=== PATIENT | male | born 1965 | race Caucasian/White ===

== ENCOUNTER 2019-01-06 09:49 | Inpatient (IN) | payer MEDICAID ==
[~2019-01-06] VITALS: Ht 172.7 cm; Wt 84.9 kg
[2019-01-06] MEDS ORDERED: SODIUM CHLORIDE 0.9% 1,000 ML IVB ONE (10:16)
[2019-01-06 11:02] LABS: Basophils # (auto) 0.1 uL; Basophils % (auto) 0.7 % (0.0-2.0); Eosinophils # (auto) 0 uL; Eosinophils % (auto) 0.4 % (0.0-7.0); Hematocrit 47.4 % (41.0-53.0); Hemoglobin 16.1 g/dL (13.5-17.5); Lymphocytes # (auto) 1.7 uL; Lymphocytes % (auto) 21.7 % (10.0-50.0); Mean Corpuscular Hemoglobin 31.5 pg (28.0-32.0); Mean Corpuscular Volume 92.5 fL (80.0-100.0); Monocytes # (auto) 0.8 uL; Monocytes % (auto) 10.4 % (0.0-12.0); Neutrophils # (auto) 5.3 uL; Neutrophils % (auto) 66.8 % (37.0-80.0); Platelet Count (auto) 141 10^3/uL (140-450); Red Blood Cells 5.12 10^6/uL (4.5-5.90); Red Cell Distribution Width 12.8 % (11.8-14.3); White Blood Cell 7.9 10^3/uL (4.4-10.8)
[2019-01-06 11:09] LABS: Alanine Aminotransferase 30 U/L (16-61); Albumin 3.4 g/dL (3.4-5.0); Anion Gap 5 (5-15); Aspartate Aminotransferase 30 U/L (15-37); BUN/Creatinine Ratio 6.9; Blood Urea Nitrogen 7 mg/dL (7-18); Calcium 8.4 mg/dL (8.5-10.1); Carbon Dioxide 28 mmol/L (21-32); Chloride 110 mmol/L (98-107); GFR African American 99 mL/min; GFR Non-African American 82 mL/min; Glucose 101 mg/dL (74-106); Potassium 3.5 mmol/L (3.5-5.1); Sodium 143 mmol/L (136-145)
[2019-01-06 11:10] LABS: Urine WBC None Seen /hpf (0 - 3)
[2019-01-06 11:14] LABS: Alkaline Phosphatase 94 U/L (45-117); Bilirubin, Total 0.4 mg/dL (0.2-1.0); Total Protein 6.6 g/dL (6.4-8.2)
[2019-01-06 11:41] LABS: INR < 0.93 (0.9-1.15)
[2019-01-06 12:03] LABS: Urine Bacteria NONE SEEN /hpf (None Seen); Urine Blood Negative /uL (Negative); Urine Mucus FEW (None Seen); Urine Specific Gravity 1.009 (1.001-1.035)
[2019-01-06] MEDS ORDERED: KETOROLAC TROMETH 30 MG/ML 1ML VIAL IV ONE (12:30)
[2019-01-06] MEDS ORDERED: MORPHINE SULF INJ 2 MG/ML SYRINGE 1ML IV PRN ×2 (15:45)
[2019-01-06] MEDS ORDERED: ACETAMINOPHEN 500 MG TAB PO PRN (15:45)
[2019-01-06] MEDS ORDERED: ONDANSETRON HCL 4 MG/2 ML VIAL IV PRN (15:45)
[2019-01-06] MEDS ORDERED: HYDROcodone-ACET 5/325MG TAB PO PRN (15:45)
[2019-01-06] MEDS ORDERED: NITROGLYCERIN 0.4 MG SL TAB SL PRN (15:45)
[2019-01-06] MEDS ORDERED: LORazepam 2MG/ML-1ML VIAL IV PRN (16:00)
[2019-01-06] MEDS ORDERED: cefTRIAXone 1GM/50ML D5W 50 ML IV SCH (16:00)
[2019-01-06] MEDS: cefTRIAXone 1GM/50ML D5W 50 ML IV SCH (16:38)
[2019-01-06] MEDS: AZITHROMYCIN 500MG/ 250ML 250 ML IV SCH (17:27)
--- NOTE | 2019-01-06 18:52 | NUR ---
REPORT RECEIVED FROM ANDREW CROOK. PATIENT TO BE BROUGHT TO UNIT WHEN TELE BOX ARRIVES.
[2019-01-06] MEDS: IPRATROPIUM BROM 0.5 MG/2.5ML INH SOL NEB SCH (19:02)
[2019-01-06] MEDS: ALBUTEROL SULF 2.5 MG/0.5ML(0.5%) NEB SOLN NEB SCH (19:02)
--- NOTE | 2019-01-06 20:45 | NUR ---
Telemetry admit from ER LEWIS JERRY admitted to Telemetry unit after SBAR received. Patient oriented to Radha Hernandez, primary RN, unit, room, bed, and unit policies regarding patient care and visiting hours. Patient now on continuous telemetry monitoring, tele box # 31 and telemetry reading on arrival to unit is sinus rhythm. Patient weighed by bedscale and encouraged to call if they need something. All questions and concerns addressed, patient verbalized understanding.
[2019-01-06 20:49] VITALS: BP 131/74
[2019-01-06] MEDS: methylPREDNISolone SOD SUCC 125 MG/2 ML VL IV SCH (21:32)
[2019-01-06 23:03] VITALS: BP 131/74
[2019-01-06] MEDS ORDERED: OLAN20TA13 PO (23:18)
[2019-01-07 05:00] VITALS: BP 150/85
[2019-01-07] MEDS: ALBUTEROL SULF 2.5 MG/0.5ML(0.5%) NEB SOLN NEB SCH ×3 (06:27→19:32)
[2019-01-07] MEDS: IPRATROPIUM BROM 0.5 MG/2.5ML INH SOL NEB SCH ×3 (06:27→19:33)
--- NOTE | 2019-01-07 06:50 | NUR ---
Wound photo taken on R forehead and nose bridge.
--- NOTE | 2019-01-07 06:55 | NUR ---
Patient off unit to smoke.
--- NOTE | 2019-01-07 07:07 | NUR ---
Back to room.
--- NOTE | 2019-01-07 07:40 | NUR ---
Opening Shift Note Assumed care of patient, awake, alert and oriented x4. No S/S of distress/SOB or pain. Instructed on POC and to call for assist PRN. Bed at lowest locked position, bed side rails up x2 and call light within reach. Will continue to monitor for changes Q1hr and PRN.
[2019-01-07 08:00] VITALS: BP 127/81
--- NOTE | 2019-01-07 08:00 | NUR ---
Patient went down to smoke. Educated patient on risks of smoking. Patient verbalized understanding and states " I cant stop smiking, I have tried before". Addendum: 01/07/19 at 1851 by Emily Mena RN Patient went down to smoke.
[2019-01-07 09:00] VITALS: BP 127/81
[2019-01-07] MEDS: methylPREDNISolone SOD SUCC 125 MG/2 ML VL IV SCH (09:29)
[2019-01-07] MEDS: AZITHROMYCIN 500MG/ 250ML 250 ML IV SCH (09:29)
[2019-01-07] MEDS: cefTRIAXone 1GM/50ML D5W 50 ML IV SCH (09:30)
[2019-01-07] MEDS: FAMOTIDINE 20 MG TAB PO SCH (09:31)
[2019-01-07] MEDS: OLANZapine 5 MG TAB PO SCH (10:00)
--- NOTE | 2019-01-07 12:30 | NUR ---
PATIENT HAS AN AMA TO SMOKE. PATIENT GOING DOWN TO SMOKE.
[2019-01-07 13:00] VITALS: BP 130/88
--- NOTE | 2019-01-07 13:49 | NUR ---
SENT SPUTUM SPECIMEN TO LAB VIA BULLET.
--- NOTE | 2019-01-07 14:02 | NUR ---
Received referral to determine if pt who is a 53 yr old male who is alert and oriented times 3. Pt admits to being homeless and on parole. Pt was living in a placement until last Monday when he got into a verbal altercation with the vault manager. He was asked to leave. Pt states he called his police liaison officer and basically he had no where to go. Pt states he slept in an alley for two days. Pt,s police liaison officer, Mr Maurice [phone] did give him food vouchers and also bus passes. Pt ia very concerned about the programs that he is attending as part of his parole. Pt states his police liaison officer is aware of where he is and what is going on. Pt also has an ankle bracelet on. Pt states he smokes cigarettes and marijuana. Pt also admits to drinking beer and considers himself an alcoholic. He states he has gone to AA, NA and a couple of other programs. However, he states he is unable to stop. Pt was give socks and a sweat shirt. He stated the [facility] gave hime a blanket. Pt has a sister in [facility] but it is out of the area where he is too far to be out of the area. He states he is under the care of a psychiatrist for his medication for bipolar and schizophrenia. Pt states he has applied for SSI and has a hearing in February. child daycare worker stated called police liaison officer and he stated that he is looking for a placement for pt. Informed Mr. Maurice that pt could be discharged tomorrow. Addendum: 01/07/19 at 1604 by MEGGAN CARDOSO SS Pt's police liaison officer, Mr Maurice is actively looking for a placement for pt. child daycare worker is to call parole office to determine whether Mr. Maurice has found a facilitly for pt. child daycare worker will continue to work with pt to find a satisfactory placement.
[2019-01-07 17:00] VITALS: BP 114/72
--- NOTE | 2019-01-07 19:18 | NUR ---
Patient back in room. Care endorsed to NOC RN.
--- NOTE | 2019-01-07 19:30 | NUR ---
Opening Shift Note Assumed care of patient, awake, alert and oriented x4. No S/S of distress/SOB , and pt denies pain. Instructed on POC and to call for assist PRN. Bed at low locked position; bed side rails up x2 and call light within reach. Will continue to monitor for changes Q1hr and PRN.
--- NOTE | 2019-01-07 19:57 | NUR ---
Pt returning to room after gone outside to smoke. Pt wearing ankle bracelet for parole on L ankle.
--- NOTE | 2019-01-07 20:30 | NUR ---
This RN in to pt's room spoke with pt at length re. his health and life/health choices he has been and is making. Pt constantly wiggling L foot/lower leg from side to side as with nervousness. Pt open about having been incarcerated x2, losing parents, having made his sister angry and getting 'kicked out' of his living place and being homeless x3d. States he gets into arguments or fights easily and threatens to kill people. This RN warned pt that he could have charges pressed against him for this. Pt admitted prior knowledge of this and stated those threats are "terroristic threats", he understands. This RN informed pt that he is too young and too valuable to continue to make choices that create problems for himself as he does. Pt states that he needs a list of foods/types of food to eat and medicines to take and when and supplies to buy. This RN told him this can be done, but lists and numerous people standing between him and a wrong choice will not stop him if he does not decide to make better choices.
[2019-01-07 22:00] VITALS: BP 118/76
[2019-01-07] MEDS: methylPREDNISolone SOD SUCC 40 MG/ML VL IV SCH (22:35)
--- NOTE | 2019-01-07 22:42 | NUR ---
This RN in to pt's room to admin. routine med. Pt sleeping, easily awakened. RN asked pt if he had been outside to smoke. RN prev in to room finding pt gone from bed and not in bathroom. Pt admitted he had gone outside to smoke. RN explained to pt he must stop at [facility] to tell/ask if he can go outside, for his safety. Pt VU and agreed with plan.
[2019-01-08] VITALS (7 sets, daily range): BP systolic 118–129; BP diastolic 68–88
[2019-01-08 04:52] LABS: Basophils # (auto) 0 uL; Basophils % (auto) 0.2 % (0.0-2.0); Eosinophils # (auto) 0 uL; Hematocrit 46.2 % (41.0-53.0); Hemoglobin 15.9 g/dL (13.5-17.5); Lymphocytes # (auto) 0.7 uL; Lymphocytes % (auto) 5.4 % (10.0-50.0); Mean Corpuscular Hemoglobin 31.5 pg (28.0-32.0); Mean Corpuscular Hgb Conc. 34.5 g/dL (32.0-36.0); Mean Corpuscular Volume 91.3 fL (80.0-100.0); Monocytes # (auto) 0.4 uL; Monocytes % (auto) 3.2 % (0.0-12.0); Neutrophils # (auto) 12.3 uL; Neutrophils % (auto) 91.2 % (37.0-80.0); Nucleated Red Blood Cells % 0.1 %; Platelet Count (auto) 148 10^3/uL (140-450); Red Blood Cells 5.06 10^6/uL (4.5-5.90); Red Cell Distribution Width 12.8 % (11.8-14.3); White Blood Cell 13.5 10^3/uL (4.4-10.8)
[2019-01-08 05:05] LABS: Albumin 3.5 g/dL (3.4-5.0); BUN/Creatinine Ratio 16.7; Calcium 8.8 mg/dL (8.5-10.1); Potassium 4.2 mmol/L (3.5-5.1)
[2019-01-08 05:07] LABS: Bilirubin, Total 0.3 mg/dL (0.2-1.0); Total Protein 6.9 g/dL (6.4-8.2)
[2019-01-08] MEDS: ALBUTEROL SULF 2.5 MG/0.5ML(0.5%) NEB SOLN NEB SCH ×3 (06:35→19:26)
[2019-01-08] MEDS: IPRATROPIUM BROM 0.5 MG/2.5ML INH SOL NEB SCH ×3 (06:35→19:26)
--- NOTE | 2019-01-08 06:54 | NUR ---
Pt amb off unit to go outside to smoke.
--- NOTE | 2019-01-08 09:00 | NUR ---
Opening Shift Note Assumed care of patient, awake and alert. No S/S of distress/SOB or pain. Instructed on POC and to call for assistance PRN, will continue to monitor for changes.
[2019-01-08] MEDS: cefTRIAXone 1GM/50ML D5W 50 ML IV SCH (09:04)
[2019-01-08] MEDS: FAMOTIDINE 20 MG TAB PO SCH (09:05)
[2019-01-08] MEDS: OLANZapine 5 MG TAB PO SCH (09:05)
[2019-01-08] MEDS: methylPREDNISolone SOD SUCC 40 MG/ML VL IV SCH ×2 (09:05→21:49)
[2019-01-08] MEDS: AZITHROMYCIN 500MG/ 250ML 250 ML IV SCH (09:06)
--- NOTE | 2019-01-08 09:30 | NUR ---
patient taken down for procedure to laborer wharf. No s/s of SOB noted.
[2019-01-08] MEDS ORDERED: ADENOSINE 70 MG in GIVE UN-DILUTED 0 ML IV STA (09:55)
--- NOTE | 2019-01-08 11:26 | NUR ---
patient taken down for procedure to microbiological lab technician. No s/s of SOB noted.
--- NOTE | 2019-01-08 12:30 | NUR ---
SPOKE WITH PHYSICAL PLANT MANAGER GINNA AND UPDATED HIM ON PATIENTS PLAN OF CARE.
--- NOTE | 2019-01-08 12:57 | NUR ---
Pt went down for heart cath. Discharge will most likely be tomorrow.
--- NOTE | 2019-01-08 13:37 | NUR ---
IV removal of right AC IV DC'd with clean sterile technique, catheter fully intact. Pressure dressing applied to site. Patient tolerated well. IV Insertion to left forearm with 20 gauge with one attempt. patient tolerated well.
--- NOTE | 2019-01-08 13:49 | NUR ---
assessment Patient is a 53 year old male who is alert and oriented. Prior to admission patient was homeless. Patient informed me he is on parole and his banking services officer Mr Maurice is looking for placement for him. Patient has an ankle monitor. Patient uses Dr Jane for his PCP. Patient has no income. Patient has a SW through the parole office Mrs Lafleur. Patient informed me he has no need for DME. Tiffanie FORD1 will be working with patient for his homeless disposition. I informed patient he has a right to speak to a executive secretary social welfare regarding all care. I informed patient he has a right to participate in any and all discharge planning. Patient does not have a POA and advanced directive. I have offered patient information on POA and advanced directives. I informed the patient the advantages and benefits of having an Advanced Directive. Patient verbalized understanding and agreed to discharge plan. Addendum: 01/08/19 at 1356 by Siri ZARAGOZA Amended: Links added.
--- NOTE | 2019-01-08 14:28 | NUR ---
Conversed with pt this afternoon. Pt went to the slab polisher this morning and also had a stress test. Pt stated his sister in [place] is willing to take him home with her. However do the fact that pt is involved in several programs dictated by his parole it may be too far. field crop harvest worker tried calling Briseyda, his sister [phone] but the voice mail is full. Pt states his public safety officer indicated to him there may be a program in [place]. Pt admits to being thrown out of his many placements due to his inability to get along with the managers of the facility. Will call pt's public safety officer and advise him of his clients discharge tomorrow.
--- NOTE | 2019-01-08 15:18 | NUR ---
Spoke with Mr. Elliott the pt's commanding officer homicide squad [phone]. Will call in the morning for information.
--- NOTE | 2019-01-08 19:24 | NUR ---
CLOSING NOTE PATIENT IS COMFORTABLY RESTING IN BED ON ROOM AIR. NO S/S OF DISTRESS/SOB NOTED/STATED. BED AT LOWEST LOCKED POSITION AND CALL LIGHT WITHIN REACH. CARE ENDORSED TO NOC RN.
--- NOTE | 2019-01-08 19:53 | NUR ---
Pt returning from 7 minute trip outside 'to smoke.' This RN saw him leave without notifying anyone while nurses in report. After he returned to room this RN reminded him that he is to tell this RN when he wants to go downstairs. Pt, as during prev. night, agreed with plan and stated he would.
--- NOTE | 2019-01-08 23:01 | NUR ---
This pt returned from second smoke break; notified this RN before going out and stated it would be his last time for the night.
[2019-01-09 05:00] VITALS: BP 116/83
[2019-01-09] MEDS: ALBUTEROL SULF 2.5 MG/0.5ML(0.5%) NEB SOLN NEB SCH ×3 (06:05→19:34)
[2019-01-09] MEDS: IPRATROPIUM BROM 0.5 MG/2.5ML INH SOL NEB SCH ×3 (06:05→19:33)
[2019-01-09 06:11] LABS: Basophils # (auto) 0 uL; Eosinophils # (auto) 0 uL; Hematocrit 48.2 % (41.0-53.0); Hemoglobin 16.5 g/dL (13.5-17.5); Lymphocytes # (auto) 0.8 uL; Lymphocytes % (auto) 5.8 % (10.0-50.0); Mean Corpuscular Hgb Conc. 34.3 g/dL (32.0-36.0); Mean Corpuscular Volume 93.5 fL (80.0-100.0); Monocytes # (auto) 0.5 uL; Monocytes % (auto) 3.5 % (0.0-12.0); Neutrophils # (auto) 11.8 uL; Neutrophils % (auto) 90.7 % (37.0-80.0); Platelet Count (auto) 150 10^3/uL (140-450); Red Blood Cells 5.15 10^6/uL (4.5-5.90); Red Cell Distribution Width 13.1 % (11.8-14.3)
--- NOTE | 2019-01-09 06:28 | NUR ---
Pt stopped at [facility] to ask if he could go outside to smoke; ambulating off unit.
[2019-01-09 06:32] LABS: Potassium 4.9 mmol/L (3.5-5.1)
[2019-01-09 06:45] LABS: Albumin 3.4 g/dL (3.4-5.0); BUN/Creatinine Ratio 24.7; Bilirubin, Total 0.2 mg/dL (0.2-1.0); Calcium 8.7 mg/dL (8.5-10.1); Total Protein 6.7 g/dL (6.4-8.2)
--- NOTE | 2019-01-09 06:48 | NUR ---
Pt back in room talking on phone.
--- NOTE | 2019-01-09 07:45 | NUR ---
Opening patient awake in bed, bed in lowest position, patient is sitting up at side of bed, eating breakfast. Will f/u with morning assessment. Patient was supposed to do a cardiac cath, and/or stress test will f/u with this, noc nurse states no orders. This was also a possible discharge patient today, if the cardiac workup and pulmonary status improved according to noc nurse. Will continue to monitor this patient
[2019-01-09 09:00] VITALS: BP 111/84
[2019-01-09] MEDS: FAMOTIDINE 20 MG TAB PO SCH (09:19)
[2019-01-09] MEDS: methylPREDNISolone SOD SUCC 40 MG/ML VL IV SCH ×2 (09:19→22:44)
[2019-01-09] MEDS: OLANZapine 5 MG TAB PO SCH (09:19)
[2019-01-09] MEDS: AZITHROMYCIN 500MG/ 250ML 250 ML IV SCH (09:21)
[2019-01-09] MEDS: cefTRIAXone 1GM/50ML D5W 50 ML IV SCH (09:21)
--- NOTE | 2019-01-09 10:51 | NUR ---
nurse note patient states "i feel i want to harm myself, but I won't" reached out to charge nurse, placed a sitter in the room. paged the doctor, will continue to closely monitor
--- NOTE | 2019-01-09 11:30 | NUR ---
nurse note patient is going out of room, and states " i don't want no one following me "
--- NOTE | 2019-01-09 12:24 | NUR ---
nurse note reported the statement to MD maldonado, orders tele/psych consult, and says patient is not to go down to smoke and a sitter is to be placed.
--- NOTE | 2019-01-09 12:29 | NUR ---
sitter at bedside
[2019-01-09 13:09] VITALS: BP 126/84
--- NOTE | 2019-01-09 14:42 | NUR ---
Estimated needs based on CBW 82.6 kg-wt maintenance factors 1525-7176 kcal (23-25 kcal/kg) 66-83 g protein (0.8-1.0 g/kg) Addendum: 01/09/19 at [address] Amended: Links added.
--- NOTE | 2019-01-09 15:04 | NUR ---
placed consult for tele/psych consult however patient, state's he does not want to talk to anyone
--- NOTE | 2019-01-09 15:37 | NUR ---
NURSE NOTE PATIENT IS NOW SPEAKING WITH PSYCHIATRIST AT THIS TIME
--- NOTE | 2019-01-09 16:29 | NUR ---
re-assessment Patient informed me he is not suicidal. Patient informed me he is nervous about not having alf when discharged. Patient informed me he is not a threat to self or others. I informed patient we would be following up with his staff air tactical officer for placement and to inform him that patients sister Luma [phone] is willing to take patient in to her house on discharge. Patient has no plan and no thought of suicide. Addendum: 01/09/19 at 1633 by Siri ZARAGOZA Amended: Links added.
--- NOTE | 2019-01-09 16:56 | NUR ---
TELE/PSYCH CONSULT COMPLETED, AWAITING REPORT FROM THE MD AND/OR CALL BACK WITH RESULTS
[2019-01-09 17:49] VITALS: BP 126/84
--- NOTE | 2019-01-09 18:17 | NUR ---
nurse note calling to follow up on tele/psych consult, no report or md has called ([phone]) to call and get information DR LONDON is the consulting doctor she states she will fax the report to me now fax number to [place] [facility] has been given
--- NOTE | 2019-01-09 19:30 | NUR ---
Opening Shift Note Assumed care of patient. Patient is awake and alert. No S/S of distress/SOB or pain. Instructed on POC and to call for assist PRN, will continue to monitor for changes. Bed locked in lowest position and bed rails up x2. Call light within reach.
--- NOTE | 2019-01-09 19:35 | NUR ---
RT NOTE PT IS NOT IN ROOM FOR HHN TX AT THIS TIME. Addendum: 01/09/19 at 4 by Merary Arrieta RT Amended: Links added.
[2019-01-09 21:33] VITALS: BP 132/86
--- NOTE | 2019-01-10 04:53 | NUR ---
Patient refusing labs Addendum: 01/10/19 at 0454 by DAVID KEYES RN RN Refusing blood draw from mechanical laboratory technician. Educated patient on the risks and benefits.
[2019-01-10 05:34] VITALS: BP 136/84
[2019-01-10] MEDS: IPRATROPIUM BROM 0.5 MG/2.5ML INH SOL NEB SCH ×3 (06:01→19:00)
[2019-01-10] MEDS: ALBUTEROL SULF 2.5 MG/0.5ML(0.5%) NEB SOLN NEB SCH ×3 (06:01→19:00)
--- NOTE | 2019-01-10 07:45 | NUR ---
opening Patient in bed, awake, bed in lowest position, call light within reach. No distress noted at this time. Will f/u with morning assessment The report for tele/psych completed, patient does not qualify or meet criteria. Stress test results placed by dr Veliz nicotine patch is requested by charge nurse will talk with patient/md about this will continue to monitor this patient
[2019-01-10 09:00] VITALS: BP 150/92
[2019-01-10] MEDS: cefTRIAXone 1GM/50ML D5W 50 ML IV SCH (09:00)
[2019-01-10] MEDS: methylPREDNISolone SOD SUCC 40 MG/ML VL IV SCH ×2 (10:00→21:20)
[2019-01-10] MEDS: FAMOTIDINE 20 MG TAB PO SCH (10:00)
[2019-01-10] MEDS: OLANZapine 5 MG TAB PO SCH (10:00)
[2019-01-10] MEDS: AZITHROMYCIN 500MG/ 250ML 250 ML IV SCH (10:00)
[2019-01-10 11:58] LABS: Basophils # (auto) 0 uL; Basophils % (auto) 0.1 % (0.0-2.0); Eosinophils # (auto) 0 uL; Hematocrit 47.2 % (41.0-53.0); Hemoglobin 16.6 g/dL (13.5-17.5); Lymphocytes # (auto) 0.8 uL; Lymphocytes % (auto) 4.7 % (10.0-50.0); Mean Corpuscular Hemoglobin 32.4 pg (28.0-32.0); Mean Corpuscular Hgb Conc. 35.2 g/dL (32.0-36.0); Mean Corpuscular Volume 92.1 fL (80.0-100.0); Monocytes # (auto) 1.8 uL; Monocytes % (auto) 11.2 % (0.0-12.0); Neutrophils # (auto) 13.8 uL; Nucleated Red Blood Cells % 0.2 %; Platelet Count (auto) 151 10^3/uL (140-450); Red Blood Cells 5.12 10^6/uL (4.5-5.90); Red Cell Distribution Width 13.2 % (11.8-14.3); White Blood Cell 16.5 10^3/uL (4.4-10.8)
[2019-01-10 12:11] LABS: Potassium 4.3 mmol/L (3.5-5.1)
[2019-01-10 12:22] LABS: Albumin 3.5 g/dL (3.4-5.0); BUN/Creatinine Ratio 25.9; Bilirubin, Total 0.3 mg/dL (0.2-1.0); Calcium 8.2 mg/dL (8.5-10.1); Total Protein 6.9 g/dL (6.4-8.2)
[2019-01-10 13:00] VITALS: BP 138/88
[2019-01-10 17:00] VITALS: BP 137/89
[2019-01-10 21:15] VITALS: BP 122/74
[2019-01-11 04:21] VITALS: BP 112/73
[2019-01-11] MEDS: ALBUTEROL SULF 2.5 MG/0.5ML(0.5%) NEB SOLN NEB SCH ×3 (07:27→18:38)
[2019-01-11] MEDS: IPRATROPIUM BROM 0.5 MG/2.5ML INH SOL NEB SCH ×3 (07:27→18:38)
--- NOTE | 2019-01-11 07:30 | NUR ---
Opening Shift Note Assumed care of patient, awake and alert. No S/S of distress/SOB or pain. Instructed on POC and to call for assist PRN, will continue to monitor for changes Q1hr and PRN.
--- NOTE | 2019-01-11 07:48 | NUR ---
Patient walked outside to smoke; instructed patient to tell me when he comes back up to the floor/room.
[2019-01-11 09:00] VITALS: BP 134/91
[2019-01-11] MEDS: cefTRIAXone 1GM/50ML D5W 50 ML IV SCH (09:00)
--- NOTE | 2019-01-11 10:00 | NUR ---
Patient NPO for procedure this afternoon.
[2019-01-11] MEDS: OLANZapine 5 MG TAB PO SCH (10:31)
[2019-01-11] MEDS: methylPREDNISolone SOD SUCC 40 MG/ML VL IV SCH ×2 (10:31→21:42)
[2019-01-11] MEDS: AZITHROMYCIN 500MG/ 250ML 250 ML IV SCH (10:32)
[2019-01-11] MEDS: FAMOTIDINE 20 MG TAB PO SCH (10:32)
--- NOTE | 2019-01-11 11:30 | NUR ---
IV removal IV DC'd with clean sterile technique, catheter fully intact. Pressure dressing applied to site. Patient tolerated well.
--- NOTE | 2019-01-11 11:32 | NUR ---
IV insertion IV access obtained, via clean sterile technique by inserting 20 gauge catheter at right wrist after 1 attempt. IV secured properly. No trauma to site. Patient tolerated well.
--- NOTE | 2019-01-11 11:53 | NUR ---
Patient taken down to Die Cut Operator via hospital bed; no distress noted at time of departure.
--- NOTE | 2019-01-11 11:54 | NUR ---
New orders received from Dr. Deepa MD. Addendum: 01/11/19 at 1156 by JANELLE NI RN RN Time on note above should read [id number]
--- NOTE | 2019-01-11 12:07 | NUR ---
Respiratory note: Scheduled medneb tx not given at this time, pt at procedure in cardiac cath lab radiology technologist. Will endorse pt care to noc shift RT.
[2019-01-11] MEDS ORDERED: IODIXANOL 320MG/ML 100ML BTL IV ONE (12:35)
[2019-01-11] MEDS ORDERED: LIDOCAINE 2%HCL (LOCAL ANESTH.) INJ 20ML MDV ONE (12:36)
[2019-01-11] MEDS ORDERED: fentaNYL CITRATE 100 MCG/2 ML VL ONE (12:40)
[2019-01-11] MEDS ORDERED: SODIUM CHL 0.9% 0 ML ONE (12:40)
[2019-01-11] MEDS ORDERED: VERAPAMIL 2.5MG/ML INJ 2ML VIAL IV ONE (12:40)
[2019-01-11] MEDS ORDERED: MIDAZOLAM HCL 1MG/1ML-2 ML VIAL ONE (12:40)
[2019-01-11] MEDS ORDERED: ANGIOMAX 250 MG VIAL IV ONE (12:40)
[2019-01-11 13:00] VITALS: BP 126/75
[2019-01-11] MEDS ORDERED: HEPARIN SODIUM (PORCINE) 5000 UNITS/ML 1ML VIAL ONE (13:04)
--- NOTE | 2019-01-11 14:00 | NUR ---
Patient returned from laborer wood preserving plant via hospital bed; no distress noted at time of arrival. Left Radial vascular band in place, clean, dry, and intact; will remove 2 mL of air starting at 1415, in 15 minute increments.
--- NOTE | 2019-01-11 14:15 | NUR ---
Removed 2 mL of air from right radial vascular band; no bleeding noted. Addendum: 01/12/19 at 1004 by JANELLE NI RN RN note should read Left radial vascular band.
--- NOTE | 2019-01-11 15:30 | NUR ---
Left radial vascular band removed; no bleeding noted at this time, site is clean, dry, and gauze pressure dressing applied. Educated patient about risks of bleeding from site, and to let me or the primary RN know immediately if blood is present on dressing. Will continue to monitor patient Q1.
[2019-01-11 17:00] VITALS: BP 137/87
--- NOTE | 2019-01-11 20:00 | NUR ---
Opening Shift Note Assumed care of patient, awake and alert. No S/S of distress/SOB or pain. Dressing to left wrist clean, dry and intact. Instructed on POC and to call for assist PRN, will continue to monitor for changes Q1hr and PRN. Bed in low position with brakes locked; call light in reach.
[2019-01-11 21:00] VITALS: BP 124/87
[2019-01-12 04:57] VITALS: BP 131/85
[2019-01-12] MEDS: ALBUTEROL SULF 2.5 MG/0.5ML(0.5%) NEB SOLN NEB SCH ×2 (06:09→11:37)
[2019-01-12] MEDS: IPRATROPIUM BROM 0.5 MG/2.5ML INH SOL NEB SCH ×2 (06:09→11:37)
--- NOTE | 2019-01-12 07:00 | NUR ---
Patient up ambulating outside to smoke cigarette; no acute distress noted. Report given to day shift RN.
[2019-01-12] MEDS: AZITHROMYCIN 500MG/ 250ML 250 ML IV SCH (10:00)
[2019-01-12] MEDS: methylPREDNISolone SOD SUCC 40 MG/ML VL IV SCH (10:43)
[2019-01-12] MEDS: OLANZapine 5 MG TAB PO SCH (10:43)
[2019-01-12] MEDS: cefTRIAXone 1GM/50ML D5W 50 ML IV SCH (10:43)
[2019-01-12] MEDS: FAMOTIDINE 20 MG TAB PO SCH (10:43)
--- NOTE | 2019-01-12 12:00 | NUR ---
Dr. Deepa MD, at bedside; new orders received.
--- NOTE | 2019-01-12 15:41 | NUR ---
Discharge instructions given as ordered. Encourage to follow up with PMD as instructed. All questions and concerns addressed. Patient verbalized understanding. Medication reconciliation form completed and copy given to patient. Home medications held in Pharmacy returned to patient. IV removed with catheter intact, pressure dressing applied. Telemetry unit returned to ICU. Patient walked downstairs to lobby to wait for his sister to pick him up. No distress noted at time of departure.
== END 2019-01-12 16:30 | disposition home or self-care (01) | DRG 191 ==
LOC: ER 09:49 → TELE 09:50 → TELE-CENTR 20:22
PROVIDERS: ADMIT Nurse Practitioner Acute Care; ATTEND Internal Medicine
PROC: 4A023N7 Measurement of Cardiac Sampling and Pressure, Left Heart, Percutaneous Approach (ICD-10-PCS; principal; 2019-01-11)
PROC: B2101ZZ Fluoroscopy of Single Coronary Artery using Low Osmolar Contrast (ICD-10-PCS; 2019-01-11)
PROC: B2151ZZ Fluoroscopy of Left Heart using Low Osmolar Contrast (ICD-10-PCS; 2019-01-11)
DX: I25.110 Atherosclerotic heart disease of native coronary artery with unstable angina pectoris (principal); J44.1 Chronic obstructive pulmonary disease with (acute) exacerbation; R45.851 Suicidal ideations; F41.9 Anxiety disorder, unspecified; F81.9 Developmental disorder of scholastic skills, unspecified; I73.9 Peripheral vascular disease, unspecified; F17.210 Nicotine dependence, cigarettes, uncomplicated; I10 Essential (primary) hypertension; F32.9 Major depressive disorder, single episode, unspecified; N02.8 Recurrent and persistent hematuria with other morphologic changes; Z59.0 Homelessness; Z71.6 Tobacco abuse counseling; Z79.899 Other long term (current) drug therapy; Z91.19 Patient's noncompliance with other medical treatment and regimen
CPT/HCPCS: 36415; 71045; 78452; 80053; 81001; 83735; 83880; 84484; 85025; 85610; 85730; 87070; 87081; 87205; 87804; 93017; 93458; 93926; 94640; 96365; 96367; 96375; G0378; J0153; J0696; J1885; J2250; J2405; Q9967

== ENCOUNTER 2024-08-30 17:43 | Emergency (ER) | payer MEDICAID ==
[~2024-08-30] VITALS: Ht 175.3 cm; Wt 72.7 kg
[~2024-08-30 17:43] MED LIST: OLAN20TA PO
[2024-08-30 18:32] VITALS: TEMP 98.7
[2024-08-30 18:34] VITALS: PULSE 102; RESP 21; O2SAT 96
--- NOTE | 2024-08-30 18:42 | DVH ---
EXAM: CT HEAD WITHOUT CONTRAST HISTORY: ALOC / ataxia COMPARISON: None TECHNIQUE: Axial images were obtained and reformatted in coronal and sagittal planes. All CT scans at this medical facility are performed using dose modulation techniques as appropriate t o a performed exam including the following: Automated exposure control was utilized; adjustment of th e MA and/or KV according to patient size; and use of iterative reconstruction technique. CT Dose: CTDI volume is 55.82 mGy. Dose-length product is 990.13 mGy*cm FINDINGS: Supratentorial Region: No evidence for large acute territorial ischemia. No intracranial hemorrhage is noted. Posterior Fossa: No acute abnormality. Brainstem: Unremarkable. Sellar/Suprasellar Region: Unremarkable. Ventricles, Cisterns, Sulci: Age-appropriate. Orbits: Unremarkable. Paranasal Sinuses: Unremarkable. Mastoid Air Cells: Unremarkable. Vasculature: Unremarkable. Bones/Soft Tissues: No acute abnormality. Other: None. IMPRESSION: 1. No acute intracranial process.
--- NOTE | 2024-08-30 18:49 | ED.PDOC ---
Psychiatric HPI Comments 58-year-old male who came to ER via EMS for mental health issues. Per EMS, patient has history of anxiety, depression and schizophrenia. Does have history of substance abuse. Patient resides at the [facility], and has been heard to be talking about overdosing on fentanyl in an attempt to harm himself. Caregivers decided to bring him to a behavioral health center, however once the patient denies being suicidal or homicidal. Paramedics were called because patient was noted to be imbalanced and complaining of dizziness. Upon arrival paramedics, patient denies everything. Chief Complaint: Mental Health Time Seen by MD: 18:48 Reviewed Notes: Nurses Notes Information Source: Patient Mode of Arrival: EMS Severity: Unable to Care for Self, Unable to Control Self Severity of Pain: Moderate Severity of Mental Status: Moderate Severity of Symptoms: Moderate Timing: Hours Duration: Since onset Presents with: Depression, Anxiety, Unclear Thinking Circumstance: Medical Clearance, Causing a Disturbance History of: Substance Abuse Associated signs and symptoms: Depression, Hopeless, Anxiety Past Medical History PAST MEDICAL HISTORY: Anxiety, Asthma, Depression, Schizophrenia Surgical History: Denies all surgeries Family History Family History: Reviewed,noncontributory to illness Social History Smoker: Cigarettes Alcohol: Occasionally Drugs: Marijuana Lives In: Other ([facility] [place]) Constitutional: denies: chills, diaphoresis, fatigue, fever, malaise, sweats, weakness, others EENTM: denies: blurred vision, double vision, ear bleeding, ear discharge, ear drainage, ear pain, ear ringing, eye pain, eye redness, hearing loss, mouth pain, mouth swelling, nasal discharge, nose bleeding, nose congestion, nose pain, photophobia, tearing, throat pain, throat swelling, voice changes, others Respiratory: denies: cough, hemoptysis, orthopnea, SOB at rest, shortness of breath, SOB with excertion, stridor, wheezing, others Cardiovascular: denies: chest pain, dizzy spells, diaphoresis, Dyspnea on exertion, edema, irregular heart beat, left arm pain, lightheadedness, palpitations, PND, syncope, others Gastrointestinal: denies: abdomen distended, abdominal pain, blood streaked bowels, constipated, diarrhea, dysphagia, difficulty swallowing, hematemesis, melena, nausea, poor appetite, poor fluid intake, rectal bleeding, rectal pain, vomiting, others Genitourinary: denies: burning, dysuria, flank pain, frequency, hematuria, incontinence, penile discharge, penile sore, pain, testicle pain, testicle swelling, urgency, others Neurological: denies: dizziness, fainting, headache, left sided numbness, left sided weakness, numbness, paresthesia, pre-existing deficit, right sided numbness, right sided weakness, seizure, speech problems, tingling, tremors, weakness, others Musculoskeletal: denies: back pain, gout, joint pain, joint swelling, muscle pain, muscle stiffness, neck pain, others Integumetry: denies: bruises, change in color, change in hair/nails, dryness, laceration, lesions, lumps, rash, wounds, others Allergic/Immunocompromised: denies: Difficulty Healing, Frequent Infections, Hives, Itching, others Hematologic/Lymphatic: denies: anemia, blood clots, easy bleeding, easy bruising, swollen glands, others Endocrine: denies: excessive hunger, excessive sweating, excessive thirst, excessive urination, flushing, intolerance to cold, intolerance to heat, unexplained weight gain, unexplained weight loss, others Psychiatric: reports: anxiety, schizophrenia; denies: bipolar disorder, depression, hopeless, panic disorder, sleepless, suicidal, others Physical Exam General Appearance: No Apparent Distress, Normal HEENT: Normal ENT Inspection, Pharynx Normal, TMs Normal Neck: Full Range of Motion, Non-Tender, Normal, Normal Inspection Respiratory: Chest Non-Tender, Lungs Clear, No Accessory Muscle Use, No Respi ratory Distress, Normal Breath Sounds Cardiovascular: No Edema, No JVD, No Murmur, No Gallop, Normal Peripheral Pulses, Regular Rate/Rhythm Breast Exam: Deferred Gastrointestinal: No Organomegaly, Non Tender, No Pulsatile Mass, Normal Bowel Sounds, Soft Genitalia: Deferred Pelvic: Deferred Rectal: Deferred Extremities: No calf tenderness, Normal capillary refill, Normal inspection, Normal range of motion, Non-tender, No pedal edema Musculoskeletal : Apperance: Normal Neurologic: Alert, automatic winder operator II-XII nml as Tested, No Motor Deficits, Normal Affect, Normal Mood, No Sensory Deficits Cerebellar Function: Normal Reflexes: Normal Skin: Dry, Normal Color, Warm Lymphatic: No Adenopathy Was a procedure done? Was a procedure done?: No Psych Differential Dx Psych. Differential Dx: Anxiety, Bipolar Disorder, Depression, Hopeless, Schizoprenia, Suicidal X-Ray, Labs, Meds, VS Vital Signs Date Time Temp Pulse Resp B/P (MAP) Pulse Ox O2 Delivery O2 Flow Rate FiO2 08/30/24 20:01 147/53 08/30/24 20:00 97 17 147/83 (104) 98 08/30/24 19:04 166/104 08/30/24 19:03 166/104 08/30/24 18:34 102 21 96 Room Air* 0 21 08/30/24 18:32 98.7 103 21 168/108 (128) 95 98.7 08/30/24 18:03 97.6 86 18 146/97 (113) 98 97.6 Lab Test 08/30/24 18:29 Range/Units POC Glucose 84 70-106 mg/dl Current Medications Medications (Trade) Dose Ordered Sig/Cayla Route Start Time Stop Time Status Last Admin Clonidine HCl (Catapres Tablet) 0.2 mg ONCE ONCE PO 08/30/24 19:00 08/30/24 19:01 DC 08/30/24 19:04 EXAM: CT HEAD WITHOUT CONTRAST HISTORY: ALOC / ataxia COMPARISON: None TECHNIQUE: Axial images were obtained and reformatted in coronal and sagittal planes. All CT scans at this medical facility are performed using dose modulation techniques as appropriate to a performed exam including the following: Automated exposure control was utilized; adjustment of the MA and/or KV according to patient size; and use of iterative reconstruction technique. CT Dose: CTDI volume is 55.82 mGy. Dose-length product is 990.13 mGy*cm FINDINGS: Supratentorial Region: No evidence for large acute territorial ischemia. No intracranial hemorrhage is noted. Posterior Fossa: No acute abnormality. Brainstem: Unremarkable. Sellar/Suprasellar Region: Unremarkable. Ventricles, Cisterns, Sulci: Age-appropriate. Orbits: Unremarkable. Paranasal Sinuses: Unremarkable. Mastoid Air Cells: Unremarkable. Vasculature: Unremarkable. Bones/Soft Tissues: No acute abnormality. Other: None. IMPRESSION: 1. No acute intracranial process. Time of 1ST Reevaluation: 18:40 Reevaluation 1ST: Unchanged Patient Education/Counseling: Diagnosis, Treatment Family Education/Counseling: No Family Present Departure 1 Departure Time of Disposition: 20:30 Impression: Primary Impression: Schizophrenia Disposition: HOME / SELF CARE / HOMELESS Condition: Stable Discharged With: Self Critical Care Note Critical Care Time?: No Stability Stability form required: No Heart Score Heart Score: Heart Score Response (Comments) Value History N/A 0 EKG N/A 0 Age N/A 0 Risk Factors N/A 0 Troponin N/A 0 Total 0 I personally scribed for RITA BEAR MD ([email or web address]) on 08/30/24 at 18:49. Electronically submitted by Palmer Hernandez ([facility] [employer] [facility]). I personally scribed for RITA BEAR MD ([email or web address]) on 08/30/24 at 18:58. Electronically submitted by Palmer Hernandez ([employer]). RITA BEAR MD August 30, 2024 18:49
[2024-08-30] MEDS: cloNIDine HCL 0.1 MG TAB PO ONE ×2 (19:03→19:04)
[2024-08-30 20:00] VITALS: BP 147/83; PULSE 97; RESP 17; O2SAT 98
== END 2024-08-30 20:33 | disposition home or self-care (01) ==
LOC: ER 17:43 → EDBD 17:43 → ER 20:33
DX: T40.411A Poisoning by fentanyl or fentanyl analogs, accidental (unintentional), initial encounter (principal); F17.210 Nicotine dependence, cigarettes, uncomplicated; F20.9 Schizophrenia, unspecified; F32.A Depression, unspecified; F41.9 Anxiety disorder, unspecified; J45.909 Unspecified asthma, uncomplicated; R51.9 Headache, unspecified; Z79.899 Other long term (current) drug therapy; Y92.89 Other specified places as the place of occurrence of the external cause
CPT/HCPCS: 70450; 82947; 82962

== ENCOUNTER 2024-08-30 23:12 | Emergency (ER) | payer MEDICAID ==
[~2024-08-30] VITALS: Ht 182.9 cm; Wt 84.0 kg
[2024-08-30 23:51] LABS: Basophils # (auto) 0 10 ^3/uL (0-0.2); Basophils % (auto) 0.2 % (0.0-2.0); Eosinophils # (auto) 0 10 ^3/uL (0-0.8); Eosinophils % (auto) 0.3 % (0.0-7.0); Hematocrit 44.9 % (41.0-53.0); Hemoglobin 15.1 g/dL (13.5-17.5); Lymphocytes # (auto) 1.3 10 ^3/uL (0.4-5.4); Lymphocytes % (auto) 16.7 % (10.0-50.0); Mean Corpuscular Hemoglobin 31.9 pg (28.0-32.0); Mean Corpuscular Hgb Conc. 33.7 g/dL (32.0-36.0); Mean Corpuscular Volume 94.6 fL (80.0-100.0); Monocytes # (auto) 0.7 10 ^3/uL (0-1.3); Monocytes % (auto) 9.8 % (0.0-12.0); Neutrophils # (auto) 5.5 10 ^3/uL (1.6-8.6); Platelet Count (auto) 170 10^3/uL (140-450); Red Blood Cells 4.75 10^6/uL (4.5-5.90); Red Cell Distribution Width 14.1 % (11.8-14.3); White Blood Cell 7.5 10^3/uL (4.4-10.8)
--- NOTE | 2024-08-30 23:52 | ED.PDOC ---
Psychiatric HPI Comments 58-year-old male who came to ER via EMS for mental health issues. Per EMS, patient has history of anxiety, depression and schizophrenia. Does have history of substance abuse. Was seen here earlier for suicidal ideations but patient signed AMA. Patient went back his senior living house where he took some sleeping pills, approximately 10 tablets, in an attempt to harm himself. Patient denies any pain subjective complaints at this time of care Chief Complaint: Overdose Time Seen by MD: 23:49 Reviewed Notes: Nurses Notes Information Source: Patient Mode of Arrival: EMS Severity: Unable to Care for Self, Unable to Control Self Severity of Pain: Moderate Severity of Mental Status: Moderate Severity of Symptoms: Moderate Timing: Hours Duration: Since onset Presents with: Depression, Anxiety, Unclear Thinking, Bizarre Behavior, Suicidal Ideation Attempt: Ingestion Ingestion: Intentional, Multiple, Ingestion Observed, Drug(s) Ingested (Sleeping pills), Amount Ingested (10 tablets) Circumstance: Medical Clearance, Causing a Disturbance Stressors: Relationships History of: Depression, Anxiety, Schizophrenia, Suicidal Attempt, Substance Abuse Associated signs and symptoms: Depression, Hopeless, Anxiety, Anger Past Medical History PAST MEDICAL HISTORY: Anxiety, Asthma, Depression, Schizophrenia Surgical History: Denies all surgeries Family History Family History: Reviewed,noncontributory to illness Social History Smoker: Cigarettes Alcohol: Occasionally Drugs: Marijuana Lives In: Other ([place] [facility]) Constitutional: denies: chills, diaphoresis, fatigue, fever, malaise, sweats, weakness, others EENTM: denies: blurred vision, double vision, ear bleeding, ear discharge, ear drainage, ear pain, ear ringing, eye pain, eye redness, hearing loss, mouth pain, mouth swelling, nasal discharge, nose bleeding, nose congestion, nose pain, photophobia, tearing, throat pain, throat swelling, voice changes, others Respiratory: denies: cough, hemoptysis, orthopnea, SOB at rest, shortness of breath, SOB with excertion, stridor, wheezing, others Cardiovascular: denies: chest pain, dizzy spells, diaphoresis, Dyspnea on exertion, edema, irregular heart beat, left arm pain, lightheadedness, palp itations, PND, syncope, others Gastrointestinal: denies: abdomen distended, abdominal pain, blood streaked bowels, constipated, diarrhea, dysphagia, difficulty swallowing, hematemesis, melena, nausea, poor appetite, poor fluid intake, rectal bleeding, rectal pain, vomiting, others Genitourinary: denies: burning, dysuria, flank pain, frequency, hematuria, incontinence, penile discharge, penile sore, pain, testicle pain, testicle swelling, urgency, others Neurological: denies: dizziness, fainting, headache, left sided numbness, left sided weakness, numbness, paresthesia, pre-existing deficit, right sided numbness, right sided weakness, seizure, speech problems, tingling, tremors, weakness, others Musculoskeletal: denies: back pain, gout, joint pain, joint swelling, muscle pain, muscle stiffness, neck pain, others Integumetry: denies: bruises, change in color, change in hair/nails, dryness, laceration, lesions, lumps, rash, wounds, others Allergic/Immunocompromised: denies: Difficulty Healing, Frequent Infections, Hives, Itching, others Hematologic/Lymphatic: denies: anemia, blood clots, easy bleeding, easy brui sing, swollen glands, others Endocrine: denies: excessive hunger, excessive sweating, excessive thirst, ex cessive urination, flushing, intolerance to cold, intolerance to heat, unexplained weight gain, unexplained weight loss, others Psychiatric: denies: anxiety, bipolar disorder, depression, hopeless, panic disorder, schizophrenia, sleepless, suicidal, others Physical Exam General Appearance: No Apparent Distress, Normal HEENT: Normal ENT Inspection, Pharynx Normal, TMs Normal Neck: Full Range of Motion, Non-Tender, Normal, Normal Inspection Respiratory: Chest Non-Tender, Lungs Clear, No Accessory Muscle Use, No Res piratory Distress, Normal Breath Sounds Cardiovascular: No Edema, No JVD, No Murmur, No Gallop, Normal Peripheral Pulses, Regular Rate/Rhythm Breast Exam: Deferred Gastrointestinal: No Organomegaly, Non Tender, No Pulsatile Mass, Normal Bowel Sounds, Soft Genitalia: Deferred Pelvic: Deferred Rectal: Deferred Extremities: No calf tenderness, Normal capillary refill, Normal inspection, Normal range of motion, Non-tender, No pedal edema Musculoskeletal : Apperance: Normal Neurologic: Alert, legal project manager II-XII nml as Tested, No Motor Deficits, Normal Affect, Normal Mood, No Sensory Deficits Cerebellar Function: Normal Reflexes: Normal Skin: Dry, Normal Color, Warm Lymphatic: No Adenopathy Was a procedure done? Was a procedure done?: No Psych Differential Dx OD Differential Dx: Anxiety, Depression, Drug Overdose, Intentional, Schizophrenia, Substance Abuse, Suicidal Attempt, Suicidal Gesture X-Ray, Labs, Meds, VS Vital Signs Date Time Temp Pulse Resp B/P (MAP) Pulse Ox O2 Delivery O2 Flow Rate FiO2 08/30/24 23:19 88 08/30/24 23:12 98.1 80 16 150/100 (117) 95 98.1 Lab Test 08/30/24 23:54 08/30/24 23:40 Range/Units Urine Opiates Screen Neg NEGATIVE Urine Fentanyl Screen Neg NEGATIVE Urine Barbiturates Screen Neg NEGATIVE Urine Phencyclidine Screen Neg NEGATIVE Urine Amphetamines Screen Neg NEGATIVE Urine Benzodiazepines Screen Neg NEGATIVE Urine Cocaine Screen Neg NEGATIVE Urine Cannabinoids Screen Neg NEGATIVE White Blood Count 7.5 4.4-10.8 10^3/uL Red Blood Count 4.75 4.5-5.90 10^6/uL Hemoglobin 15.1 13.5-17.5 g/dL Hematocrit 44.9 41.0-53.0 % Mean Corpuscular Volume 94.6 80.0-100.0 fL Mean Corpuscular Hemoglobin 31.9 28.0-32.0 pg Mean Corpuscular Hemoglobin Concent 33.7 32.0-36.0 g/dL Red Cell Distribution Width 14.1 11.8-14.3 % Platelet Count 170 140-450 10^3/uL Mean Platelet Volume 8.3 6.9-10.8 fL Neutrophils (%) (Auto) 73.0 37.0-80.0 % Lymphocytes (%) (Auto) 16.7 10.0-50.0 % Monocytes (%) (Auto) 9.8 0.0-12.0 % Eosinophils (%) (Auto) 0.3 0.0-7.0 % Basophils (%) (Auto) 0.2 0.0-2.0 % Neutrophils # (Auto) 5.5 1.6-8.6 10 ^3/uL Lymphocytes # (Auto) 1.3 0.4-5.4 10 ^3/uL Monocytes # (Auto) 0.7 0-1.3 10 ^3/uL Eosinophils # (Auto) 0 0-0.8 10 ^3/uL Basophils # (Auto) 0 0-0.2 10 ^3/uL Nucleated Red Blood Cells 0.0 % Sodium Level 141 136-145 mmol/L Potassium Level 3.9 3.5-5.1 mmol/L Chloride Level 106 98-107 mmol/L Carbon Dioxide Level 27 20-31 mmol/L Anion Gap 8 5-15 Blood Urea Nitrogen 17 9-23 mg/dL Creatinine 1.15 0.700-1.30 mg/dL Glomerular Filtration Rate Calc 73 >90 mL/min BUN/Creatinine Ratio 14.8 10.0-20.0 Serum Glucose 117 H 74-106 mg/dL Calcium Level 9.7 8.7-10.4 mg/dL Magnesium Level 2.2 1.6-2.6 mg/dL Total Bilirubin 0.5 0.2-1.0 mg/dL Aspartate Amino Transferase (AST) 15 13-40 U/L Alanine Aminotransferase (ALT) 21 7-40 U/L Alkaline Phosphatase 77 46-116 U/L Total Protein 6.7 5.7-8.2 g/dL Albumin 4.4 3.2-4.8 g/dL Salicylates Level < 3.0 -30 mg/dL Acetaminophen Level < 2.0 L 10.0-20.0 UG/ML Plasma/Serum Blood Alcohol < 3.0 <10 mg/dL Time of 1ST Reevaluation: 23:50 Reevaluation 1ST: Unchanged Patient Education/Counseling: Diagnosis, Treatment Family Education/Counseling: No Family Present Departure 1 Departure Time of Disposition: 05:13 Impression: Primary Impression: Schizophrenia [facility] Condition: Stable Comments Patient is cleared medically at this time. Patient is awaiting mental health evaluation: possible return to his custodial or possible inpatient mental health care per psychiatry recommendations Critical Care Note Critical Care Time?: No Stability Stability form required: No Heart Score Heart Score: Heart Score Response (Comments) Value History N/A 0 EKG N/A 0 Age N/A 0 Risk Factors N/A 0 Troponin N/A 0 Total 0 I personally scribed for RITA BEAR MD ([email or web address]) on 08/30/24 at 23:52. Electronically submitted by Palmer Hernandez ([email or web address]). RITA BEAR MD August 30, 2024 23:52
[2024-08-31 00:27] LABS: Alanine Aminotransferase 21 U/L (7-40); Albumin 4.4 g/dL (3.2-4.8); Alkaline Phosphatase 77 U/L (46-116); Anion Gap 8 (5-15); Aspartate Aminotransferase 15 U/L (13-40); BUN/Creatinine Ratio 14.8 (10.0-20.0); Bilirubin, Total 0.5 mg/dL (0.2-1.0); Blood Urea Nitrogen 17 mg/dL (9-23); Calcium 9.7 mg/dL (8.7-10.4); Carbon Dioxide 27 mmol/L (20-31); Chloride 106 mmol/L (98-107); Magnesium 2.2 mg/dL (1.6-2.6); Potassium 3.9 mmol/L (3.5-5.1); Sodium 141 mmol/L (136-145); Total Protein 6.7 g/dL (5.7-8.2)
[2024-08-31 00:29] LABS: Glucose 117 mg/dL (74-106); Salicylate < 3.0 mg/dL (-30)
[2024-08-31 00:40] LABS: Acetaminophen < 2.0 UG/ML (10.0-20.0)
[2024-08-31 01:42] LABS: Amphetamine Screen, Urine Neg (NEGATIVE); Barbiturate Scree,Urine Neg (NEGATIVE); Benzodiazephine Screen, Urine Neg (NEGATIVE); Cannabinoid Screen, Urine Neg (NEGATIVE); Cocaine Screen, Urine Neg (NEGATIVE); Opiate Scree,Urine Neg (NEGATIVE); Phencyclidine Screen, Urine Neg (NEGATIVE)
[2024-08-31 01:43] LABS: Blood Alcohol < 3.0 mg/dL (<10)
[2024-08-31 08:14] VITALS: PULSE 79; RESP 14; O2SAT 95
--- NOTE | 2024-08-31 09:15 | DVHINCON2 ---
Date of Service if different f: August 31, 2024 Consultation ([facility]) Progress: Somewhat better Labs Laboratory Tests Test 08/30/24 23:40 08/30/24 23:54 White Blood Count 7.5 10^3/uL (4.4-10.8) Red Blood Count 4.75 10^6/uL (4.5-5.90) Hemoglobin 15.1 g/dL (13.5-17.5) Hematocrit 44.9 % (41.0-53.0) Mean Corpuscular Volume 94.6 fL (80.0-100.0) Mean Corpuscular Hemoglobin 31.9 pg (28.0-32.0) Mean Corpuscular Hemoglobin Concent 33.7 g/dL (32.0-36.0) Red Cell Distribution Width 14.1 % (11.8-14.3) Platelet Count 170 10^3/uL (140-450) Mean Platelet Volume 8.3 fL (6.9-10.8) Neutrophils (%) (Auto) 73.0 % (37.0-80.0) Lymphocytes (%) (Auto) 16.7 % (10.0-50.0) Monocytes (%) (Auto) 9.8 % (0.0-12.0) Eosinophils (%) (Auto) 0.3 % (0.0-7.0) Basophils (%) (Auto) 0.2 % (0.0-2.0) Neutrophils # (Auto) 5.5 10 ^3/uL (1.6-8.6) Lymphocytes # (Auto) 1.3 10 ^3/uL (0.4-5.4) Monocytes # (Auto) 0.7 10 ^3/uL (0-1.3) Eosinophils # (Auto) 0 10 ^3/uL (0-0.8) Basophils # (Auto) 0 10 ^3/uL (0-0.2) Nucleated Red Blood Cells 0.0 % Sodium Level 141 mmol/L (136-145) Potassium Level 3.9 mmol/L (3.5-5.1) Chloride Level 106 mmol/L (98-107) Carbon Dioxide Level 27 mmol/L (20-31) Anion Gap 8 (5-15) Blood Urea Nitrogen 17 mg/dL (9-23) Creatinine 1.15 mg/dL (0.700-1.30) Glomerular Filtration Rate Calc 73 mL/min (>90) BUN/Creatinine Ratio 14.8 (10.0-20.0) Serum Glucose 117 mg/dL (74-106) Calcium Level 9.7 mg/dL (8.7-10.4) Magnesium Level 2.2 mg/dL (1.6-2.6) Total Bilirubin 0.5 mg/dL (0.2-1.0) Aspartate Amino Transf (AST/SGOT) 15 U/L (13-40) Alanine Aminotransferase (ALT/SGPT) 21 U/L (7-40) Alkaline Phosphatase 77 U/L (46-116) Total Protein 6.7 g/dL (5.7-8.2) Albumin 4.4 g/dL (3.2-4.8) Salicylates Level < 3.0 mg/dL (-30) Acetaminophen Level < 2.0 UG/ML (10.0-20.0) Plasma/Serum Blood Alcohol < 3.0 mg/dL (<10) Urine Opiates Screen Neg (NEGATIVE) Urine Fentanyl Screen Neg (NEGATIVE) Urine Barbiturates Screen Neg (NEGATIVE) Urine Phencyclidine Screen Neg (NEGATIVE) Urine Amphetamines Screen Neg (NEGATIVE) Urine Benzodiazepines Screen Neg (NEGATIVE) Urine Cocaine Screen Neg (NEGATIVE) Urine Cannabinoids Screen Neg (NEGATIVE) Appearance: Stated age Psychomotor activity: Calm Behavioral: Cooperative Eye contact: Appropriate Speech: WNL Affect: Restricted Mood: Depressed Thought processes: Linear/Goal-directed Thought content: WNL Suicidal ideations: Absent Homicidal ideations: Absent Orientation: Person, Place, Time, Situation Memory intact: Recent Intellect: Average Abstractability: WNL Concentration: Adequate Attention: Adequate Judgement: Poor Insight: Poor Vitals Vital Signs Date Time Temp Pulse Resp B/P (MAP) Pulse Ox O2 Delivery O2 Flow Rate FiO2 08/30/24 23:19 88 08/30/24 23:12 98.1 16 150/100 (117) 95 98.1 Medication adjusted: No Labs ordered: No Psychotherapy provided: Yes Type: Voluntary Diagnosis: F33.2 by history. Plan : 70 y/o male BIB EMS, attempted suicide last night with 10 sleeping pills after leaving AMA. Pt is depressed, appears hopeless, overwhelmed, socially anxious, uncomfortable in crowds or around strangers. IS struggling with re-integration after being [facility]. Denies meth use in last year, now denying SI, but admits to feeling overwhelmed despite available supports. Given all this, the pt should be considered a DTS and a 5150 should be placed with a goal to admit to inpatient psychiatry. History of Present Illness Reason for Consult : Suicide attempt. HPI : Pt came yesterday for SI, left AMA, went to his [facility] house took 10 sleeping pills as a suicide attempt. Pt says he feels better now and wants to return to his [facility] house. Pt admits to feeling depressed, admits to having a diagnosis of depression and some disorder he cannot pronounce. Pt recently got out of group home. Was in group home for 3 yrs. Got out on the 06 of august. Pt is riddled with regrets and thoughts of the past and this is causing him depression. Pt notes there are people and systems out there to help him re- integrate but he appears to be stressed out despite all these. Pt currently denies any SI, HI or AVH. Family History: Father was an alcoholic. Past Psychiatric History : Twice hospitalized, last time was a long time ago. Psychiatry OP follow-up. Takes some medicines for anxiety, doesn't know the names. Past Medical History : Asthma. Numbness and pain. Social History : Lives in a [facility] house, recently released from group home. Pt doesn't want to be around people, wants to do his own thing, get back on his feet. Assessment/Diagnosis/Plan Reviewed: Consults, Care Plan, Labs, Medications TRELL GIFFORD MD August 31, 2024 09:15
[2024-09-02 09:29] VITALS: BP 127/95; PULSE 83; RESP 18; TEMP 98.2; O2SAT 96
[2024-09-03] MEDS: LORazepam 0.5 MG TAB ONE (00:02)
[2024-09-03] MEDS: LORazepam 0.5 MG TAB PO ONE (00:02)
--- NOTE | 2024-09-03 12:32 | ECG ---
[facility] Test Date: 2024-08-30 Test Time: 23:19:11 Pat Name: LEWIS JERRY Department: ED Room: Gender: M Film Numberer: tien : 1965 Requested By: RITA BEAR Order Number: [id number] Reading MD: Hunter Rene Measurements Intervals [place] Rate: 88 P: 66 KS: 147 QRS: -67 QRSD: 99 T: -9 QT: 367 QTc: 444 Interpretive Statements Sinus rhythm Consider right atrial enlargement Left anterior fascicular block Low voltage, precordial leads Abnormal R-wave progression, early transition Left ventricular hypertrophy Borderline T abnormalities, inferior leads Electronically Signed On 09-08-2024 21:36:17 PDT by Hunter Rene Please click the below link to view image of tracing.
== END 2024-09-03 16:40 | disposition left against medical advice (07) ==
LOC: ER 23:12 → EDBD 23:12 → ER 09-03 16:40
DX: F20.9 Schizophrenia, unspecified (principal); F32.A Depression, unspecified; F41.9 Anxiety disorder, unspecified; F17.210 Nicotine dependence, cigarettes, uncomplicated; J45.909 Unspecified asthma, uncomplicated; R45.851 Suicidal ideations; Z79.899 Other long term (current) drug therapy
CPT/HCPCS: 36415; 80053; 80307; 80320; 80329; 83735; 85025; 93005